=== PATIENT | female | born 1960 | race Caucasian/White ===

== ENCOUNTER 2020-05-28 11:59 | Observation (INO) | payer MEDICAID, OTHER ==
[~2020-05-28] VITALS: Ht 170.2 cm; Wt 72.4 kg
--- NOTE | 2020-05-28 12:34 | NUR ---
pt resting comfortably on an e.r. gurney while awaiting an MD to assess. she is connected to a manager monitoring, and pulse oximetry.
--- NOTE | 2020-05-28 12:59 | NUR ---
JAVIER (RN) IS ASSUMING CARE OF THIS PT AT THIS TIME. SBAR REPORT WAS EXCHANGED AT THE BEDSIDE.
[2020-05-28] MEDS ORDERED: ASPIRIN 81 MG TABLET CHEW ONE (13:00)
[2020-05-28] MEDS ORDERED: ASPIRIN 81 MG TABLET CHEW PO ONE ×2 (13:00→16:00)
[2020-05-28] MEDS ORDERED: SODIUM CHLORIDE FLUSH 10ML SYR IVF ONE (13:00)
[2020-05-28 13:16] LABS: BASOPHILS # (AUTO) 0.16 x10^3/uL (0-0.1); BASOPHILS % (AUTO) 1 % (0-1); EOSINOPHILS % (AUTO) 1 % (1-7); LYMPHOCYTES # (AUTO) 3.99 x10^3/uL (1-3.4); LYMPHOCYTES % (AUTO) 28 % (22-44); MD NO; MEAN CORPUSCULAR HEMOGLOBIN 31.4 pg (27.0-34.8); MEAN CORPUSCULAR HGB CONC 32.9 g/dL (32.4-35.8); MEAN CORPUSCULAR VOLUME 95.5 fL (80-100); MONOCYTES # (AUTO) 0.74 x10^3/uL (0.2-0.8); MONOCYTES % (AUTO) 5 % (2-9); NEUTROPHILS # (AUTO) 9.31 x10^3/uL (1.8-6.8); NEUTROPHILS % (AUTO) 65 % (42-75); PLATELET COUNT 312 x10^3/uL (130-400); RED BLOOD COUNT 4.99 x10^6/uL (3.82-5.3); RED CELL DISTRIBUTION WIDTH 13.4 % (9.6-15.2)
--- NOTE | 2020-05-28 13:21 | NUR ---
PT SITTING IN BED, NO SIGNS OF DISTRESS, BEDRAILS UP X2, CALL LIGHT AND BELONGINGS IN REACH, WILL CONTINUE TO MONITOR.
[2020-05-28 13:28] LABS: ALANINE AMINOTRANSFERASE 31 U/L (12-78); ALBUMIN 3.4 g/dL (3.4-5.0); ANION GAP 6 mmol/L (5-15); CALCIUM 8.4 mg/dL (8.5-10.1); CHLORIDE 112 mmol/L (98-107); CREATININE 0.85 mg/dL (0.55-1.02)
[2020-05-28 13:32] LABS: ALKALINE PHOSPHATASE 243 U/L (45-117); BILIRUBIN,TOTAL 0.8 mg/dL (0.2-1.0); TOTAL PROTEIN 7.3 g/dL (6.4-8.2); TROPONIN I < 0.015 ng/mL (0.000-0.045)
--- NOTE | 2020-05-28 14:15 | NUR ---
Colton spears in [facility] - 05/28/20 at 1417 by TANYA PT AMBULATORY TO BATHROOM, STEADY GAIT. PT VOIDED 150MLS URINE.
--- NOTE | 2020-05-28 14:17 | NUR ---
PT LAYING IN BED, ALL NEEDS MET AT THIS TIME.
[2020-05-28] MEDS ORDERED: METOCLOPRAMIDE 5 MG/ML, 2ML IVPush PRN (16:00)
[2020-05-28] MEDS ORDERED: MELATONIN 5 MG TABLET PO PRN (16:00)
[2020-05-28] MEDS ORDERED: hydrALAzine 20 MG/ML, 1ML IVPush PRN (16:00)
[2020-05-28] MEDS ORDERED: PROMETHAZINE 25 MG/ML, 1ML IM PRN (16:00)
[2020-05-28] MEDS ORDERED: ONDANSETRON ODT 4 MG PO PRN (16:00)
[2020-05-28] MEDS ORDERED: SODIUM CHLORIDE FLUSH 10ML SYR IVF PRN (16:00)
[2020-05-28] MEDS ORDERED: morphine SULFATE 10 MG/ML, 1ML IVPush PRN (16:00)
[2020-05-28] MEDS ORDERED: ONDANSETRON 2MG/ML, 2ML IVPush PRN (16:00)
[2020-05-28] MEDS ORDERED: DIPHENHYDRAMINE 50 MG CAPSULE PO PRN (16:00)
[2020-05-28] MEDS ORDERED: POLYETHYLENE GLYCOL 17 GM PACKET PO PRN (16:00)
[2020-05-28] MEDS ORDERED: ACETAMINOPHEN 325 MG TABLET PO PRN (16:00)
[2020-05-28] MEDS ORDERED: BISACODYL 10 MG SUPP PR PRN (16:00)
[2020-05-28] MEDS ORDERED: OXYcodone/APAP 5/325MG TABLET ONE (16:32)
[2020-05-28] MEDS ORDERED: ENOXAPARIN 40 MG/0.4 ML ONE (16:32)
[2020-05-28] MEDS ORDERED: NICOTINE 14MG/24 HR PATCH.TD24 ONE (16:32)
--- NOTE | 2020-05-28 16:36 | NUR ---
CLINICAL SCREEN EDITTED TO ADD PMH.
[2020-05-28] MEDS: OXYcodone/APAP 5/325MG TABLET PO SCH ×2 (16:37→23:02)
[2020-05-28] MEDS: NICOTINE 14MG/24 HR PATCH.TD24 TD SCH (16:37)
[2020-05-28] MEDS: ENOXAPARIN 40 MG/0.4 ML SQ SCH (16:38)
--- NOTE | 2020-05-28 16:43 | NUR ---
HOSPITAL BED REQUESTED. ALL NEEDS MET AT THIS TIME.
--- NOTE | 2020-05-28 17:02 | NUR ---
REPORT GIVEN TO JAZZY ERWIN.
--- NOTE | 2020-05-28 17:07 | NUR ---
REPORT RECEIVED FROM JAZZY HERRERA. ASSUMED CARE
--- NOTE | 2020-05-28 17:27 | NUR ---
FOOD TRAY PROVIDED
[2020-05-28 19:28] LABS: AMPHETAMINE SCREEN, URINE Negative (Negative); BARBITURATE SCREEN, URINE Negative (Negative); BENZODIAZEPINE SCREEN, URINE Negative (Negative); CANNABINOID SCREEN, URINE Negative (Negative); COCAINE SCREEN, URINE Negative (Negative); METHADONE SCREEN, URINE Negative (Negative); OPIATE SCREEN, URINE Positive (Negative)
--- NOTE | 2020-05-28 20:44 | NUR ---
PT AMBULATED TO BATHROOM. BLANKET AND PILLOW PROVIDED.
[2020-05-28 21:50] VITALS: BP 150/82
[2020-05-28] MEDS ORDERED: [UNRECOGNIZED DRUG - OTHER] PO (22:17)
[2020-05-28] MEDS ORDERED: OXYC-302 PO (22:17)
[2020-05-28] MEDS ORDERED: ESCI20TA PO (22:17)
[2020-05-28] MEDS ORDERED: Tizanidine PO (22:17)
[2020-05-28] MEDS ORDERED: [UNRECOGNIZED DRUG - REMARK] PO (22:17)
[2020-05-28 23:04] LABS: TROPONIN I < 0.015 ng/mL (0.000-0.045)
[2020-05-29 03:55] VITALS: BP 125/75
[2020-05-29 04:51] LABS: BASOPHILS % (AUTO) 1 % (0-1); EOSINOPHILS % (AUTO) 2 % (1-7); LYMPHOCYTES # (AUTO) 3.98 x10^3/uL (1-3.4); LYMPHOCYTES % (AUTO) 40 % (22-44); MD NO; MEAN CORPUSCULAR HEMOGLOBIN 31.5 pg (27.0-34.8); MEAN CORPUSCULAR HGB CONC 32.8 g/dL (32.4-35.8); MEAN PLATELET VOLUME 8.7 fL (7.4-10.4); MONOCYTES # (AUTO) 0.72 x10^3/uL (0.2-0.8); MONOCYTES % (AUTO) 7 % (2-9); NEUTROPHILS # (AUTO) 5.07 x10^3/uL (1.8-6.8); NEUTROPHILS % (AUTO) 50 % (42-75); PLATELET COUNT 245 x10^3/uL (130-400); RED CELL DISTRIBUTION WIDTH 13.7 % (9.6-15.2)
[2020-05-29 04:56] LABS: CHLORIDE 112 mmol/L (98-107)
[2020-05-29 05:08] LABS: ANION GAP 6 mmol/L (5-15); CALCIUM 8.3 mg/dL (8.5-10.1); CHOLESTEROL, TOTAL 161 mg/dL (140-239); CREATININE 0.74 mg/dL (0.55-1.02); HDL CHOL % 14 % (28-40); HDL CHOLESTEROL (DIRECT) 23 mg/dL (40-60); LDL CHOLESTEROL,CALCULATED 96 mg/dL (54-169); LDL/HDL RATIO 4.2 (0.5-3.0); TRIGLYCERIDES 208 mg/dL (50-200); TROPONIN I < 0.015 ng/mL (0.000-0.045); VLDL CHOLESTEROL 42 mg/dL (0-25)
[2020-05-29] MEDS: OXYcodone/APAP 5/325MG TABLET PO SCH ×4 (05:55→21:01)
[2020-05-29 06:11] VITALS: BP 155/90
[2020-05-29] MEDS ORDERED: GADOTERATE 7.5 MMOL/15 ML SYR ONE (08:59)
[2020-05-29] MEDS: SENNA/DOCUSATE TABLET PO SCH (09:00)
[2020-05-29] MEDS: ESCITALOPRAM 10MG TABLET PO SCH (09:00)
[2020-05-29] MEDS ORDERED: POTASSIUM CHLORIDE 20 MEQ TAB.ER.PRT PO ONE (09:00)
[2020-05-29 13:00] VITALS: BP 175/91
[2020-05-29] MEDS: CYANOCOBALAMIN 1,000 MCG/ML, 1ML IM SCH (14:39)
[2020-05-29 15:37] VITALS: BP 120/66
[2020-05-29 15:39] VITALS: BP 120/66
[2020-05-29] MEDS: ENOXAPARIN 40 MG/0.4 ML SQ SCH (15:54)
[2020-05-29] MEDS: NICOTINE 14MG/24 HR PATCH.TD24 TD SCH (15:54)
[2020-05-29 18:54] VITALS: BP 162/91
[2020-05-29] MEDS ORDERED: ATORVASTATIN 40 MG TABLET PO SCH (21:00)
[2020-05-30 00:14] VITALS: BP 112/66
[2020-05-30 05:29] LABS: BASOPHILS # (AUTO) 0.05 x10^3/uL (0-0.1); BASOPHILS % (AUTO) 1 % (0-1); EOSINOPHILS # (AUTO) 0.17 x10^3/uL (0-0.4); EOSINOPHILS % (AUTO) 2 % (1-7); LYMPHOCYTES # (AUTO) 2.68 x10^3/uL (1-3.4); LYMPHOCYTES % (AUTO) 34 % (22-44); MD NO; MEAN CORPUSCULAR HEMOGLOBIN 31.7 pg (27.0-34.8); MEAN CORPUSCULAR HGB CONC 33.2 g/dL (32.4-35.8); MEAN CORPUSCULAR VOLUME 95.5 fL (80-100); MEAN PLATELET VOLUME 8.3 fL (7.4-10.4); MONOCYTES # (AUTO) 0.57 x10^3/uL (0.2-0.8); MONOCYTES % (AUTO) 7 % (2-9); NEUTROPHILS # (AUTO) 4.34 x10^3/uL (1.8-6.8); NEUTROPHILS % (AUTO) 56 % (42-75); PLATELET COUNT 265 x10^3/uL (130-400); RED BLOOD COUNT 4.61 x10^6/uL (3.82-5.3); RED CELL DISTRIBUTION WIDTH 13.9 % (9.6-15.2)
[2020-05-30 05:38] LABS: ALANINE AMINOTRANSFERASE 24 U/L (12-78); ALBUMIN 3.1 g/dL (3.4-5.0); ANION GAP 6 mmol/L (5-15); CALCIUM 8.8 mg/dL (8.5-10.1); CHLORIDE 114 mmol/L (98-107); CREATININE 0.74 mg/dL (0.55-1.02)
[2020-05-30 05:40] LABS: ALKALINE PHOSPHATASE 225 U/L (45-117); BILIRUBIN,TOTAL 0.8 mg/dL (0.2-1.0); TOTAL PROTEIN 6.6 g/dL (6.4-8.2)
[2020-05-30] MEDS: OXYcodone/APAP 5/325MG TABLET PO SCH ×2 (05:46→11:08)
[2020-05-30] MEDS: CYANOCOBALAMIN 1,000 MCG/ML, 1ML IM SCH (05:46)
[2020-05-30 06:50] VITALS: BP 133/73
[2020-05-30] MEDS: SENNA/DOCUSATE TABLET PO SCH (07:55)
[2020-05-30] MEDS: ESCITALOPRAM 10MG TABLET PO SCH (08:34)
[2020-05-30] MEDS ORDERED: ATOR40TA78 PO (11:10)
[2020-05-30] MEDS ORDERED: CYAN100028 PO (11:10)
[2020-05-30 13:39] VITALS: BP 164/76
[2020-05-30 13:42] VITALS: BP 147/85
[2020-05-30 15:00] LABS: CLOSTRIDIUM DIFFICILE ANTIGEN NEGATIVE; CLOSTRIDIUM DIFFICILE TOXIN NEGATIVE (Negative)
== END 2020-05-30 14:08 | disposition home or self-care (01) ==
LOC: ED 14:55 → EDIP 14:56 → INTOOBSV 14:56 → 4WST 21:15
PROVIDERS: ADMIT Hospitalist; ATTEND Hospitalist
DX: I20.8 Other forms of angina pectoris (principal); R07.89 Other chest pain; R42 Dizziness and giddiness; E78.5 Hyperlipidemia, unspecified; R26.89 Other abnormalities of gait and mobility; R41.0 Disorientation, unspecified; D72.829 Elevated white blood cell count, unspecified; R94.31 Abnormal electrocardiogram [ECG] [EKG]; F41.8 Other specified anxiety disorders; G89.4 Chronic pain syndrome; F11.20 Opioid dependence, uncomplicated; E53.8 Deficiency of other specified B group vitamins; R93.7 Abnormal findings on diagnostic imaging of other parts of musculoskeletal system; F17.210 Nicotine dependence, cigarettes, uncomplicated; Z79.899 Other long term (current) drug therapy
CPT/HCPCS: 36415; 70553; 71045; 80048; 80053; 80061; 80307; 82140; 82607; 83880; 84443; 84484; 85025; 87324; 92523; 93005; 93306; 93356; 93880; 96372; 96374; 97162; 97165; 99285; A9575; G0378; J0360; J1650; J3420; 96375